=== PATIENT | male | born 1985 | race Caucasian/White ===

== ENCOUNTER → 2016-11-09 | Outpatient (CLI) | payer BC, OTHER ==
[2016-11-09 11:25] LABS: ALBUMIN 4.3 GM/DL (3.2-5.2); ALKALINE PHOSPHATASE 103 U/L (45-117); ALT/SGPT 47 U/L (12-78); ANION GAP 9 MEQ/L (8-16); AST/SGOT 26 U/L (15-37); BILIRUBIN,TOTAL 0.4 MG/DL (0.2-1.0); BLOOD UREA NITROGEN 13 MG/DL (7-18); CALCIUM LEVEL 8.6 MG/DL (8.5-10.1); CARBON DIOXIDE LEVEL 29 MEQ/L (21-32); CHLORIDE LEVEL 106 MEQ/L (98-107); CHOLESTEROL LEVEL 154 MG/DL (<200); CREATININE FOR GFR 1.08 MG/DL (0.70-1.30); FREE T4 1.05 NG/DL (0.76-1.46); GLOMERULAR FILTRATION RATE > 60.0 (>60); GLUCOSE, FASTING 93 MG/DL (70-105); POTASSIUM SERUM 4.5 MEQ/L (3.5-5.1); SODIUM LEVEL 144 MEQ/L (136-145); TOTAL PROTEIN 8.2 GM/DL (6.4-8.2); TRIGLYCERIDES LEVEL 233 MG/DL (<150)
[2016-11-11 00:06] LABS: PSA TOTAL 0.8 ng/mL (0.0-4.0)
== END ==
LOC: M SMT 08:57
PROVIDERS: ATTEND Physician Assistant
DX: E29.1 Testicular hypofunction (principal); E66.09 Other obesity due to excess calories; I10 Essential (primary) hypertension

== ENCOUNTER → 2016-11-24 | Outpatient (CLI) | payer BC, OTHER ==
--- NOTE | 2016-11-25 08:29 | REP ---
MR LUMBAR SPINE WITHOUT CONTRAST: HISTORY: Skin anesthesia. Decreased signal intensity on T2-weighted images is present in the L3-4 and L4-5 intervertebral discs. The discs are decreased in height. These findings are consistent with disc degeneration. A diffuse disc bulge is present at the L1-2 level. There is minimal compression of the thecal sac. The L1 nerves exit the neural foramina without compression. A diffuse disc bulge is present at the L2-3 level. There is minimal compression of the thecal sac. The L2 nerves exit the neural foramina without compression. A diffuse disc bulge is present at the L3-4 level. There is minimal compression of the thecal sac. The L3 nerves exit the neural foramina without compression. A diffuse disc bulge is present at the L4-5 level. There is minimal compression of the thecal sac. The L4 nerves exit the neural foramina without compression. There is no disc bulge or herniation at the L5-S1 level. The L5 nerves exit the neural foramina without compression. The conus medullaris is normal in appearance terminating at the level of the T12-L1 intervertebral disc. Normal signal intensity is present in the lumbar vertebral bodies. IMPRESSION: Diffuse disc bulges at the L1-2 though L4-5 levels with minimal thecal sac compression. Signed by Devan Abraham MD 11/24/2016 03:35 P
== END ==
LOC: M RAD 13:27
PROVIDERS: ATTEND Physician Assistant
DX: M51.26 Other intervertebral disc displacement, lumbar region (principal)

== ENCOUNTER 2017-05-13 09:13 | Emergency (ER) | payer OTHER, BC | END 2017-05-13 10:04 | disposition home or self-care (01) | LOC: M ED 09:13 | DX: S46.911A Strain of unspecified muscle, fascia and tendon at shoulder and upper arm level, right arm, initial encounter (principal); W10.9XXA Fall (on) (from) unspecified stairs and steps, initial encounter; Y92.59 Other trade areas as the place of occurrence of the external cause; Y99.0 Civilian activity done for income or pay; I10 Essential (primary) hypertension; Z79.899 Other long term (current) drug therapy; Z79.890 Hormone replacement therapy | CPT/HCPCS: 73030 ==

== ENCOUNTER 2017-11-04 19:18 | Emergency (ER) | payer OTHER, BC ==
[2017-11-05] MEDS: NAPROXEN 250 MG TAB PO (00:19)
== END 2017-11-05 00:41 | disposition home or self-care (01) ==
LOC: M ED 19:18
DX: S89.92XA Unspecified injury of left lower leg, initial encounter (principal); W01.0XXA Fall on same level from slipping, tripping and stumbling without subsequent striking against object, initial encounter; Y92.89 Other specified places as the place of occurrence of the external cause; Z79.899 Other long term (current) drug therapy
CPT/HCPCS: 99284

== ENCOUNTER → 2018-01-10 | Outpatient (CLI) | payer BC, OTHER ==
[2018-01-10 19:39] LABS: ANION GAP 12 MEQ/L (8-16); BLOOD UREA NITROGEN 13 MG/DL (7-18); CALCIUM LEVEL 9.2 MG/DL (8.5-10.1); CARBON DIOXIDE LEVEL 23 MEQ/L (21-32); CHLORIDE LEVEL 105 MEQ/L (98-107); CHOLESTEROL LEVEL 178 MG/DL (<200); CHOLESTEROL RISK RATIO 6.357 (<5); CREATININE FOR GFR 1.06 MG/DL (0.70-1.30); FREE T4 1.04 NG/DL (0.76-1.46); GLOMERULAR FILTRATION RATE > 60.0 (>60); GLUCOSE, FASTING 85 MG/DL (70-100); HDL CHOLESTEROL 28 MG/DL (>40); LDL CHOLESTEROL 88 MG/DL (<100); NON-HDL-C 150 MG/DL; POTASSIUM SERUM 4.4 MEQ/L (3.5-5.1); SODIUM LEVEL 140 MEQ/L (136-145); TRIGLYCERIDES LEVEL 311 MG/DL (<150)
== END ==
LOC: M SMT 10:45
DX: E29.1 Testicular hypofunction (principal); I10 Essential (primary) hypertension
CPT/HCPCS: 84403

== ENCOUNTER → 2018-01-19 | Outpatient (CLI) | payer BC, OTHER | LOC: M SMT 10:08 | DX: E29.1 Testicular hypofunction (principal) | CPT/HCPCS: 84154 ==

== ENCOUNTER → 2018-01-24 | Outpatient (CLI) | payer BC, OTHER | LOC: M SLEEP HO 11:01 | DX: R40.0 Somnolence (principal); E29.1 Testicular hypofunction | CPT/HCPCS: G0399 ==

== ENCOUNTER → 2018-11-09 | Outpatient (CLI) | payer BC, OTHER ==
[~2018-11-09] MED LIST: ANDR2DIS; CHLO125TA PO; LISI10TA4 PO; NAPR-885 PO
--- NOTE | 2018-11-14 16:19 | SLEEPCENT ---
DATE OF PROCEDURE: 11/09/2018 ORDERED BY: Dr. Pollack Nocturnal polysomnography was performed for titration of pressure therapy in this patient with obstructive sleep apnea syndrome based on clinical evaluation confirmed by home testing revealing a respiratory event index of 12.5. For testing a ResMed Quattro full-face mask of medium size was used; 5 cm of water pressure were applied to the circuit and the lights were extinguished. 6 hours and 56 minutes of data were reviewed. There were 376 minutes of sleep identified. Sleep latency was short at 2 minutes. Rapid eye movement (REM) latency was short at 67 minutes. Sleep architecture was good with 4 REM cycles. Overall sleep efficiency 91.4%. The electrocardiogram showed sinus rhythm with an average heart rate of 75 beats minute. Electroencephalogram (EEG) showed normal waveforms for awake and sleep. Respiratory events were fully palliated with CPAP at a pressure of +7. There was some scattered limb activity. Limb movement arousal index of 7.2. IMPRESSION: Obstructive sleep apnea syndrome (G47.33). RECOMMENDATIONS: Nightly use of pressure therapy 7 cm of water.
== END ==
LOC: M SLEEP 19:40
PROVIDERS: ATTEND Internal Medicine Pulmonary Disease
DX: G47.33 Obstructive sleep apnea (adult) (pediatric) (principal)

== ENCOUNTER → 2019-05-03 | Outpatient (CLI) | payer BC, OTHER ==
[2019-05-03 10:05] LABS: BASO # 0.1 10^3/uL (0.0-0.2); BASO % 0.9 % (0.0-1.0); EOS # 0.3 10^3/uL (0.0-0.5); EOS % 3.4 % (0.0-3.0); HEMATOCRIT 49.6 % (42.0-52.0); HEMOGLOBIN 15.7 g/dl (13.5-17.5); LYMPH # 3.4 10^3/uL (1.5-5.0); LYMPH % 39.6 % (24.0-44.0); MEAN CORPUSCULAR HEMOGLOBIN 27.1 pg (27.0-33.0); MEAN CORPUSCULAR HGB CONC 31.7 g/dl (32.0-36.5); MEAN CORPUSCULAR VOLUME 85.7 fl (80.0-96.0); MONO # 0.6 10^3/uL (0.0-0.8); MONO % 7.4 % (0.0-5.0); NEUTROPHILS # 4.1 10^3/uL (1.5-8.5); NEUTROPHILS % 48.1 % (36.0-66.0); PLATELET COUNT, AUTOMATED 340 10^3/uL (150-450); RED BLOOD COUNT 5.79 10^6/uL (4.30-6.10); WHITE BLOOD COUNT 8.6 10^3/uL (4.0-10.0)
[2019-05-03 10:19] LABS: ALT/SGPT 79 U/L (12-78); BILIRUBIN,TOTAL 0.4 MG/DL (0.2-1.0); BLOOD UREA NITROGEN 12 MG/DL (7-18); CALCIUM LEVEL 9.2 MG/DL (8.5-10.1); CARBON DIOXIDE LEVEL 31 MEQ/L (21-32); CHLORIDE LEVEL 102 MEQ/L (98-107); CHOLESTEROL LEVEL 150 MG/DL (<200); CHOLESTEROL RISK RATIO 7.142 (<5); CREATININE FOR GFR 1.06 MG/DL (0.70-1.30); FREE T4 1.23 NG/DL (0.76-1.46); GLOMERULAR FILTRATION RATE > 60.0 (>60); GLUCOSE, FASTING 97 MG/DL (70-100); HDL CHOLESTEROL 21 MG/DL (>40); LDL CHOLESTEROL 76 MG/DL (<100); NON-HDL-C 129 MG/DL; POTASSIUM SERUM 4.2 MEQ/L (3.5-5.1); SODIUM LEVEL 141 MEQ/L (136-145); TOTAL PROTEIN 7.5 GM/DL (6.4-8.2); TRIGLYCERIDES LEVEL 267 MG/DL (<150)
[2019-05-05 00:06] LABS: PSA TOTAL 0.7 ng/mL (0.0-4.0); TESTOSTERONE FREE (DIRECT) 10.3 pg/mL (8.7-25.1)
== END ==
LOC: M PLALAB 07:22
PROVIDERS: ATTEND Physician Assistant
DX: I10 Essential (primary) hypertension (principal); G47.33 Obstructive sleep apnea (adult) (pediatric); E66.09 Other obesity due to excess calories; E29.1 Testicular hypofunction

== ENCOUNTER → 2020-05-05 | Outpatient (CLI) | payer BC, OTHER ==
[~2020-05-05] MED LIST changes: +LISI10TA22 PO; -LISI10TA4 PO
[2020-05-05 11:11] LABS: HEMOGLOBIN A1c 5.1 %
[2020-05-05 11:34] LABS: ALBUMIN 4.1 GM/DL (3.2-5.2); ALT/SGPT 33 U/L (12-78); BILIRUBIN,TOTAL 0.4 MG/DL (0.2-1.0); BLOOD UREA NITROGEN 12 MG/DL (7-18); CALCIUM LEVEL 9.5 MG/DL (8.5-10.1); CARBON DIOXIDE LEVEL 31 MEQ/L (21-32); CHLORIDE LEVEL 103 MEQ/L (98-107); CHOLESTEROL LEVEL 167 MG/DL (<200); CHOLESTEROL RISK RATIO 6.423 (<5); FREE T4 0.96 NG/DL (0.76-1.46); GLOMERULAR FILTRATION RATE > 60.0 (>60); GLUCOSE, FASTING 86 MG/DL (70-100); HDL CHOLESTEROL 26 MG/DL (>40); LDL CHOLESTEROL 83 MG/DL (<100); NON-HDL-C 141 MG/DL; POTASSIUM SERUM 4.7 MEQ/L (3.5-5.1); SODIUM LEVEL 140 MEQ/L (136-145); TOTAL PROTEIN 7.8 GM/DL (6.4-8.2); TRIGLYCERIDES LEVEL 288 MG/DL (<150)
== END ==
LOC: M PLALAB 07:43
PROVIDERS: ATTEND Physician Assistant
DX: E66.8 Other obesity (principal); I10 Essential (primary) hypertension

== ENCOUNTER → 2020-10-31 | Outpatient (CLI) | payer BC, OTHER ==
--- NOTE | 2020-10-31 13:20 | REP ---
INDICATION: PAIN IN RIGHT ANKLE JOINT OF RIGHT FOOT. COMPARISON: None TECHNIQUE: Four views FINDINGS: There is no evidence of an acute fracture or destructive osseous lesion. The mortise is intact. Plantar and retrocalcaneal heel spurs are noted. IMPRESSION: No acute abnormality. Findings as described above. <Electronically signed by Raul Rg > 10/31/20 1830
== END ==
LOC: M SOG 09:11
PROVIDERS: ATTEND Orthopaedic Surgery Adult Reconstructive Orthopaedic Surgery
DX: M25.571 Pain in right ankle and joints of right foot (principal); M77.31 Calcaneal spur, right foot

== ENCOUNTER → 2020-11-05 | Outpatient (CLI) | payer BC, OTHER ==
[2020-11-05 18:31] LABS: BLOOD UREA NITROGEN 13 MG/DL (7-18); CALCIUM LEVEL 9.8 MG/DL (8.5-10.1); CARBON DIOXIDE LEVEL 27 MEQ/L (21-32); CHLORIDE LEVEL 105 MEQ/L (98-107); GLOMERULAR FILTRATION RATE > 60.0 (>60); GLUCOSE, FASTING 113 MG/DL (70-100); POTASSIUM SERUM 3.8 MEQ/L (3.5-5.1); SODIUM LEVEL 139 MEQ/L (136-145)
[2020-11-05 19:16] LABS: HEMOGLOBIN A1c 5.3 %
== END ==
LOC: M PLALAB 15:28
PROVIDERS: ATTEND Physician Assistant
DX: I10 Essential (primary) hypertension (principal)

== ENCOUNTER → 2021-08-05 | Outpatient (REF) | payer BC, OTHER ==
[2021-08-05 14:43] LABS: C REACTIVE PROTEIN QUANTITATIV 1.18 MG/DL (0.00-0.30)
== END ==
LOC: M PLALAB 12:53
PROVIDERS: ATTEND Nurse Practitioner Adult Health
DX: M10.9 Gout, unspecified (principal)

== ENCOUNTER → 2021-08-19 | Outpatient (CLI) | payer BC, OTHER ==
[2021-08-19 09:54] LABS: BASO # 0.1 10^3/uL (0.0-0.2); BASO % 0.6 % (0.0-1.0); EOS # 0.3 10^3/uL (0.0-0.5); EOS % 3.5 % (0.0-3.0); HEMATOCRIT 48.2 % (42.0-52.0); HEMOGLOBIN 15.6 g/dl (13.5-17.5); LYMPH # 2.9 10^3/uL (1.5-5.0); LYMPH % 32.9 % (24.0-44.0); MEAN CORPUSCULAR HEMOGLOBIN 28.5 pg (27.0-33.0); MEAN CORPUSCULAR HGB CONC 32.4 g/dl (32.0-36.5); MEAN CORPUSCULAR VOLUME 88.1 fl (80.0-96.0); MONO # 0.6 10^3/uL (0.0-0.8); MONO % 7.1 % (2.0-8.0); NEUTROPHILS # 4.8 10^3/uL (1.5-8.5); NEUTROPHILS % 55.6 % (36.0-66.0); PLATELET COUNT, AUTOMATED 275 10^3/uL (150-450); RED BLOOD COUNT 5.47 10^6/uL (4.30-6.10); WHITE BLOOD COUNT 8.7 10^3/uL (4.0-10.0)
[2021-08-19 10:17] LABS: HEMOGLOBIN A1c 5.6 %
[2021-08-19 10:27] LABS: ALBUMIN 3.9 GM/DL (3.2-5.2); ALT/SGPT 47 U/L (12-78); BILIRUBIN,TOTAL 0.4 MG/DL (0.2-1.0); BLOOD UREA NITROGEN 15 MG/DL (7-18); CALCIUM LEVEL 9.9 MG/DL (8.5-10.1); CARBON DIOXIDE LEVEL 30 MEQ/L (21-32); CHLORIDE LEVEL 108 MEQ/L (98-107); CHOLESTEROL LEVEL 186 MG/DL (<200); CHOLESTEROL RISK RATIO 6.413 (<5); FERRITIN 154 NG/ML (26-388); FREE T4 0.95 NG/DL (0.76-1.46); GLOMERULAR FILTRATION RATE > 60.0 (>60); GLUCOSE, FASTING 93 MG/DL (70-100); HDL CHOLESTEROL 29 MG/DL (>40); IRON (FE) 67 UG/DL (65-175); LDL CHOLESTEROL 86 MG/DL (<100); NON-HDL-C 157 MG/DL; POTASSIUM SERUM 4.5 MEQ/L (3.5-5.1); SODIUM LEVEL 143 MEQ/L (136-145); TOTAL IRON BINDING CAPACITY 352 UG/DL (250-450); TOTAL PROTEIN 7.5 GM/DL (6.4-8.2); TRIGLYCERIDES LEVEL 357 MG/DL (<150); URIC ACID 6.5 MG/DL (3.5-7.2)
[2021-08-19 10:31] LABS: VITAMIN B12 LEVEL 273 PG/ML
[2021-08-19 10:33] LABS: FOLATE 10.4 NG/ML
== END ==
LOC: M WUC 08:15
PROVIDERS: ATTEND Nurse Practitioner Adult Health
DX: I10 Essential (primary) hypertension (principal); E66.8 Other obesity; R53.83 Other fatigue; M10.9 Gout, unspecified

== ENCOUNTER → 2021-08-27 | Outpatient (CLI) | payer BC, OTHER | LOC: M PLAIMG 10:47 | PROVIDERS: ATTEND Nurse Practitioner Adult Health | DX: M10.9 Gout, unspecified (principal) ==

== ENCOUNTER → 2021-11-09 | Outpatient (CLI) | payer BC, OTHER | LOC: M RAD 12:34 | PROVIDERS: ATTEND Nurse Practitioner Adult Health | DX: M79.675 Pain in left toe(s) (principal); R22.42 Localized swelling, mass and lump, left lower limb ==

== ENCOUNTER → 2022-08-03 | Outpatient (CLI) | payer BC, OTHER ==
[2022-08-03 11:14] LABS: BASO # 0.1 10^3/uL (0.0-0.2); EOS # 0.4 10^3/uL (0.0-0.5); HEMATOCRIT 48.1 % (42.0-52.0); HEMOGLOBIN 15.5 g/dl (13.5-17.5); LYMPH # 3.5 10^3/uL (1.5-5.0); MEAN CORPUSCULAR HEMOGLOBIN 27.5 pg (27.0-33.0); MEAN CORPUSCULAR HGB CONC 32.2 g/dl (32.0-36.5); MEAN CORPUSCULAR VOLUME 85.4 fl (80.0-96.0); MONO # 0.6 10^3/uL (0.0-0.8); MONO % 7.9 % (2.0-8.0); NEUTROPHILS # 3.5 10^3/uL (1.5-8.5); NEUTROPHILS % 42.7 % (36.0-66.0); PLATELET COUNT, AUTOMATED 310 10^3/uL (150-450); RED BLOOD COUNT 5.63 10^6/uL (4.30-6.10); WHITE BLOOD COUNT 8.1 10^3/uL (4.0-10.0)
[2022-08-03 11:15] LABS: FREE T4 1.01 NG/DL (0.89-1.76); THYROID STIMULATING HORMONE 1.719 uIU/ML (0.55-4.78)
[2022-08-03 11:16] LABS: ALBUMIN 3.8 G/DL (3.2-5.2); ALKALINE PHOSPHATASE 145 U/L (46-116); ALT/SGPT 85 U/L (7.0-40); AST/SGOT 37 U/L (<34); BILIRUBIN,TOTAL 0.2 MG/DL (0.3-1.2); BLOOD UREA NITROGEN 12 MG/DL (9-23); CARBON DIOXIDE LEVEL 30 MMOL/L (20-31); CHLORIDE LEVEL 105 MMOL/L (98-107); CHOLESTEROL LEVEL 160 MG/DL (<200); CHOLESTEROL RISK RATIO 6.75 (<5); CREATININE FOR GFR 1.01 MG/DL (0.70-1.30); GLOMERULAR FILTRATION RATE > 60.0 (>60); GLUCOSE, FASTING 96 MG/DL (60-100); HDL CHOLESTEROL 23.7 MG/DL (>40); NON-HDL-C 136.3 MG/DL; POTASSIUM SERUM 4.9 MMOL/L (3.5-5.1); SODIUM LEVEL 143 MMOL/L (136-145); TOTAL PROTEIN 6.9 G/DL (5.7-8.2); TRIGLYCERIDES LEVEL 665 MG/DL (<150)
[2022-08-03 11:18] LABS: URIC ACID 8.5 MG/DL (3.7-9.2)
== END ==
LOC: M PLALAB 07:51
PROVIDERS: ATTEND Family Medicine
DX: E78.1 Pure hyperglyceridemia (principal); I10 Essential (primary) hypertension; M10.9 Gout, unspecified

== ENCOUNTER 2022-12-17 18:08 | Emergency (ER) | payer BC, OTHER ==
[~2022-12-17] VITALS: Ht 172.7 cm; Wt 106.8 kg
[2022-12-17] MEDS ORDERED: FAMOTIDINE 20MG/2ML VIAL IVP ONE (19:50)
[2022-12-17] MEDS ORDERED: NS 1,000 ML IV ONE (19:50)
[2022-12-17] MEDS ORDERED: ONDANSETRON 4MG 2ML VIAL IV ONE (19:50)
[2022-12-17] MEDS ORDERED: methylPREDNISolone 125MG 2ML VIAL IV ONE (19:50)
[2022-12-17 20:07] LABS: ALBUMIN 3.9 G/DL (3.2-5.2); BILIRUBIN,DIRECT 0.2 MG/DL (<0.4); BILIRUBIN,TOTAL 0.5 MG/DL (0.3-1.2); TOTAL PROTEIN 7.4 G/DL (5.7-8.2)
[2022-12-17 20:11] LABS: URIC ACID 8.6 MG/DL (3.7-9.2)
[2022-12-17 20:16] LABS: BASO % 0.2 % (0.0-1.0); EOS # 0.1 10^3/uL (0.0-0.5); EOS % 1.2 % (0.0-3.0); HEMOGLOBIN 17.1 g/dl (13.5-17.5); LYMPH # 2.6 10^3/uL (1.5-5.0); LYMPH % 23.2 % (24.0-44.0); MEAN CORPUSCULAR HEMOGLOBIN 27.4 pg (27.0-33.0); MEAN CORPUSCULAR HGB CONC 32.9 g/dl (32.0-36.5); MEAN CORPUSCULAR VOLUME 83.3 fl (80.0-96.0); MONO # 0.8 10^3/uL (0.0-0.8); MONO % 7.1 % (2.0-8.0); NEUTROPHILS # 7.6 10^3/uL (1.5-8.5); NEUTROPHILS % 67.9 % (36.0-66.0); PLATELET COUNT, AUTOMATED 351 10^3/uL (150-450); RED BLOOD COUNT 6.24 10^6/uL (4.30-6.10); WHITE BLOOD COUNT 11.1 10^3/uL (4.0-10.0)
[2022-12-17 22:53] VITALS: BP 117/70; TEMP 98.3; O2SAT 98
[2022-12-17] MEDS ORDERED: MEDR4PAK PO (22:54)
[2022-12-17] MEDS ORDERED: ONDA4TAB6 PO (22:54)
[2022-12-17] MEDS ORDERED: ONDANSETRON 4MG ORAL DISINTEGRATING TAB PO ONE (23:15)
== END 2022-12-17 23:20 | disposition home or self-care (01) ==
LOC: M ED 18:08
DX: K29.60 Other gastritis without bleeding (principal); I10 Essential (primary) hypertension; M10.9 Gout, unspecified; Z79.899 Other long term (current) drug therapy
CPT/HCPCS: 80047; 80076; 83690; 84550; 85025; 87486; 87507; 87581; 87633; 87798; 96361; 96374; 96375; 99284; J2405; J2930; S0028

== ENCOUNTER 2024-06-17 07:20 | Emergency (ER) | payer BC, OTHER ==
[~2024-06-17] VITALS: Ht 172.7 cm; Wt 118.8 kg
[~2024-06-17 07:20] MED LIST changes: +MEDR4PAK PO; +ONDA-282 PO
[2024-06-17] MEDS ORDERED: ISOVUE-370 76% 100ML VIAL As Ordered ONE (08:15)
[2024-06-17 08:22] LABS: BASO % 0.3 % (0.0-1.0); EOS # 0.7 10^3/uL (0.0-0.5); EOS % 4.3 % (0.0-3.0); HEMOGLOBIN 17.3 g/dl (13.5-17.5); LYMPH # 2.2 10^3/uL (1.5-5.0); LYMPH % 14.4 % (24.0-44.0); MEAN CORPUSCULAR HEMOGLOBIN 28.1 pg (27.0-33.0); MEAN CORPUSCULAR HGB CONC 33.9 g/dl (32.0-36.5); MEAN CORPUSCULAR VOLUME 82.8 fl (80.0-96.0); MONO # 0.8 10^3/uL (0.0-0.8); MONO % 5.3 % (2.0-8.0); NEUTROPHILS # 11.4 10^3/uL (1.5-8.5); NEUTROPHILS % 75.3 % (36.0-66.0); PLATELET COUNT, AUTOMATED 309 10^3/uL (150-450); RED BLOOD COUNT 6.16 10^6/uL (4.30-6.10); WHITE BLOOD COUNT 15.2 10^3/uL (4.0-10.0)
[2024-06-17 08:55] LABS: ALBUMIN 4.1 G/DL (3.2-5.2); BILIRUBIN,DIRECT 0.2 MG/DL (<0.4); BILIRUBIN,TOTAL 0.8 MG/DL (0.3-1.2); TOTAL PROTEIN 7.7 G/DL (5.7-8.2)
[2024-06-17] MEDS: NS (Normal Saline) 0.9% 1,000 ML IV ONE (08:59)
[2024-06-17] MEDS: PANTOPRAZOLE 40MG VIAL IV ONE (08:59)
[2024-06-17] MEDS: KETOROLAC 30 MG/ML 1ML VIAL IV ONE (08:59)
[2024-06-17] MEDS: SUCRALFATE SUSP 1GM/10ML UD PO ONE (09:01)
[2024-06-17] MEDS ORDERED: CARA1TAB6 PO (10:39)
[2024-06-17] MEDS ORDERED: PROT1TAB2 PO (10:39)
[2024-06-17] MEDS ORDERED: ONDA-282 PO (10:39)
[2024-06-17] MEDS: POTASSIUM CHLORIDE 10MEQ SR TABLET PO ONE (10:47)
[2024-06-17 10:49] VITALS: BP 113/69; TEMP 97.6; O2SAT 97
== END 2024-06-17 11:25 | disposition home or self-care (01) ==
LOC: M ED 07:20
DX: R11.2 Nausea with vomiting, unspecified (principal); R10.13 Epigastric pain; K59.00 Constipation, unspecified; R04.2 Hemoptysis; I10 Essential (primary) hypertension; Z79.899 Other long term (current) drug therapy
CPT/HCPCS: 74177; 80047; 80076; 83690; 85025; 96361; 96374; 99284; J1885; J2470; Q9967

== ENCOUNTER → 2025-01-04 | Outpatient (REF) | payer OTHER ==
[~2025-01-04] MED LIST changes: +CARA1TAB6 PO; +PROT1TAB2 PO
[2025-01-04 14:29] LABS: BASO # 0.1 10^3/uL (0.0-0.2); BASO % 0.8 % (0.0-1.0); EOS # 0.4 10^3/uL (0.0-0.5); EOS % 4.4 % (0.0-3.0); LYMPH # 3.6 10^3/uL (1.5-5.0); LYMPH % 37.8 % (24.0-44.0); MONO # 0.7 10^3/uL (0.0-0.8); MONO % 6.9 % (2.0-8.0); NEUTROPHILS # 4.7 10^3/uL (1.5-8.5); NEUTROPHILS % 49.6 % (36.0-66.0); PLATELET COUNT, AUTOMATED 313 10^3/uL (150-450)
[2025-01-04 14:57] LABS: ALT/SGPT 80 U/L (7.0-40); AST/SGOT 34 U/L (<34); CALCIUM LEVEL 9.3 MG/DL (8.5-10.1); CARBON DIOXIDE LEVEL 28 MMOL/L (20-31); CHLORIDE LEVEL 101 MMOL/L (98-107); CHOLESTEROL LEVEL 177 MG/DL (<200); CHOLESTEROL RISK RATIO 6.00 (<5); CREATININE FOR GFR 1.05 MG/DL (0.70-1.30); GLOMERULAR FILTRATION RATE > 90.0 (>60); LDL CHOLESTEROL 69.1 MG/DL (<100); NON-HDL-C 147.5 MG/DL; POTASSIUM SERUM 3.8 MMOL/L (3.5-5.1); SODIUM LEVEL 141 MMOL/L (136-145); TRIGLYCERIDES LEVEL 392 MG/DL (<150)
[2025-01-04 14:59] LABS: FREE T4 1.16 NG/DL (0.89-1.76)
[2025-01-04 15:05] LABS: ESTIMATED AVERAGE GLUCOSE 114.0 MG/DL (60-110)
== END ==
LOC: M LABDRWAD 13:11
PROVIDERS: ATTEND Family Medicine
DX: I10 Essential (primary) hypertension (principal); E66.89 Other obesity not elsewhere classified